=== PATIENT | female | born 1935 | race Two or more races ===

== ENCOUNTER → 2016-10-17 | Outpatient (CLI) | payer MEDICARE ==
--- NOTE | 2016-10-17 19:22 | REP ---
MRI lumbar spine without contrast: History: Lumbar radiculopathy. Bilateral hip and leg pain. No comparison imaging. Technique: Sagittal and axial T1 and T2-weighted scans are acquired in the usual fashion with and without fat saturation. Sequences include spin echo, turbo spin-echo, and STIR imaging sequences. MRI findings: Lumbar vertebral body heights are preserved and alignment is normal. Cortical and medullary bone signal intensity are normal. A normal caliber aorta is seen. Conus medullaris is normal in position and appearance at T12-L1. At T12-L1 there is diffuse disc bulging effacing the ventral subarachnoid space but not compressing the conus. No other abnormality at this level. At the L1-2, axial and sagittal images demonstrate diffuse disc bulging, this is most pronounced along the left lateral margin of the disc effacing the ventral subarachnoid space. No nerve root compression is seen. No central canal stenosis seen. At L2-3 there is moderate diffuse disc bulging. This combined with developmentally short pedicles and some ligamentum flavum and facet hypertrophy produces moderate central canal stenosis. The thecal sac measures 8 mm in the mid sagittal AP dimension at L2-3. No neural foraminal narrowing is seen. L3-4 there is a 3 mm grade 1 degenerative spondylolisthesis. No spondylolysis is seen. There is mild diffuse disc bulging. No neural foraminal encroachment is appreciated. There is mild central canal stenosis. Ligamentum flavum hypertrophy is seen. The thecal sac has an 8 mm AP mid sagittal dimension of L3-4. At L4-5, there is mild central canal stenosis due to posterior disc bulging and osteophytic ridging. There is facet and ligamentum flavum hypertrophy. Mild bilateral neural foraminal narrowing is seen at L4-5. L5-S1 there is a central disc protrusion with an annulus tear which subtly indents the ventral margin of the thecal sac. There is mild facet hypertrophy. No nerve root compression is seen. Impression: Degenerative spondylosis changes. Grade 1 degenerative L3-4 spondylolisthesis. Central canal stenosis at L3-4, L2-3, and to a lesser extent L4-5. Signed by Salas Shaw MD 10/17/2016 08:52 P
== END ==
LOC: M PLARAD 11:04
PROVIDERS: ATTEND Orthopaedic Surgery
DX: M54.16 Radiculopathy, lumbar region (principal); M48.06 Spinal stenosis, lumbar region; M43.16 Spondylolisthesis, lumbar region

== ENCOUNTER → 2019-05-03 | Outpatient (REF) | LOC: M LAB LCGH 11:06 | PROVIDERS: ATTEND Internal Medicine | DX: Z00.00 Encounter for general adult medical examination without abnormal findings (principal) ==

== ENCOUNTER 2019-06-04 13:03 | Inpatient (IN) | payer MEDICARE ==
[2019-06-04] VITALS (9 sets, daily range): BP systolic 127–163; BP diastolic 60–78; O2SAT 85–95
[~2019-06-04] VITALS: Ht 142.2 cm; Wt 101.6 kg
[2019-06-04] MEDS ORDERED: GABA-843 PO (15:50)
[2019-06-04] MEDS ORDERED: CITA40TA4 PO (15:50)
[2019-06-04] MEDS ORDERED: BISO5TAB9 PO (15:50)
[2019-06-04] MEDS ORDERED: ALBU0.63 INH (15:50)
[2019-06-04] MEDS ORDERED: SPIR1CAP INH (15:50)
[2019-06-04] MEDS ORDERED: RANI1TAB38 PO (15:50)
[2019-06-04] MEDS ORDERED: CART240C3 PO (15:50)
[2019-06-04] MEDS ORDERED: ALPR0.25 PO (15:50)
[2019-06-04] MEDS ORDERED: POTA20TA6 PO (15:50)
[2019-06-04] MEDS ORDERED: WARF-23 PO (15:50)
[2019-06-04] MEDS ORDERED: VITA100066 PO (15:50)
[2019-06-04] MEDS ORDERED: ZYLO300T6 PO (15:50)
[2019-06-04] MEDS ORDERED: ADV250INH INH (15:50)
[2019-06-04] MEDS ORDERED: WARF-20 PO (15:50)
[2019-06-04 16:31] LABS: HEMATOCRIT 33.7 % (36.0-47.0); HEMOGLOBIN 10.7 g/dl (12.0-15.5); MEAN CORPUSCULAR HEMOGLOBIN 28.9 pg (27.0-33.0); MEAN CORPUSCULAR HGB CONC 31.8 g/dl (32.0-36.5); MEAN CORPUSCULAR VOLUME 91.1 fl (80.0-96.0); PLATELET COUNT, AUTOMATED 226 10^3/uL (150-450)
[2019-06-04 16:47] LABS: ALBUMIN 2.6 GM/DL (3.2-5.2); BILIRUBIN,TOTAL 0.7 MG/DL (0.2-1.0); CALCIUM LEVEL 8.9 MG/DL (8.8-10.2); CREATININE FOR GFR 1.62 MG/DL (0.55-1.30); GLOMERULAR FILTRATION RATE 32.4 (>32); POTASSIUM SERUM 3.6 MEQ/L (3.5-5.1); TOTAL PROTEIN 6.8 GM/DL (6.4-8.2)
--- NOTE | 2019-06-04 17:08 | HPEPDOC ---
[facility] Medical History & Physical Date of Admission Jun 04, 2019 Date of Service: Jun 04, 2019 Primary Care Physician: Yoly Patricio DO [facility] Attending Physician: RIGO LACEY MD History and Physical CHIEF COMPLAINT: shortness of breath HISTORY OF PRESENT ILLNESS: Chrissy Moon is an 84-year-old female with history of chronic diastolic congestive heart failure, recurrent pneumonia, recent thoracentesis for drainage of right-sided pleural effusion (04/2019) who presents as a direct transfer from [facility] for loculated pleural effusion. She first presented to [facility] on 06/01/2019 with shortness of breath, fevers, chills. She was found to have mild leukocytosis at 11.2 and hypokalemia with potassium of 3.3. Chest x-ray was performed and found a right lower lobe infiltrate. A respiratory viral panel was negative and her BNP was found to be elevated at 894. She was previously hospitalized for pneumonia at [facility] four other times this year for the same symptoms. Each time she is treated with antibiotics and diuresis for suspected concurrent congestive heart failure exacerbation. In addition, the patient is currently on doxycycline for UTI. She has a history of recurrent UTIs for which she followed with urology several years ago but has not since seen a physician. Today, the patient reports her shortness of breath is much improved, she has some difficulty using her CPAP at night, but overall she feels better than she did 3 days ago. She was transferred to [facility] for possible thoracentesis and Pleurx catheter placement. PAST MEDICAL HISTORY: 1. History of recurrent pneumonias (5 in 2018) 2. Recent history of R-sided pleural effusion requiring thoracentesis in 04/2019 3. diastolic congestive heart failure 4. Recurrent UTIs 5. Paroxysmal atrial fibrillation (on Coumadin) 6. Chronic kidney disease stage 3, follows with Nephrology 7. COPD 8. CAD with history of stent placement in 1991 9. Essential hypertension 10. DM2 11. Anxiety disorder 12. Chronic back pain 13. SHARONDA on CPAP PAST SURGICAL HISTORY: 1. Cardiac surgery-Coronary stent 2001, 2. Angiogram 3. D&C 4. Total right knee replacement 11/27/14 5. Umbilical hernia 2009. SOCIAL HISTORY: Patient is a never smoker, denies EtOH, no other drugs, no pets in the home, no recent travel FAMILY HISTORY: Father: , diagnosed with Stroke Mother: 90 yrs, thyroid disease Siblings: , 2 brothers -DM2 sister(s) . 3 son(s) , 5 daughter(s) - healthy. ALLERGIES: Please see below. REVIEW OF SYSTEMS: CONSTITUTIONAL: Feels well. No fever or chills HEENT: denies vision changes, no sinus problems, denies any trouble swallowing CARDIOVASCULAR: no palpitations RESPIRATORY: Some shortness of breath at rest and with exertion GENITOURINARY: No dysuria MUSCULOSKELETAL: Denies any joint/muscle pain GASTROINTESTINAL: Denies abdominal pain, no nausea/vomiting/diarrhea SKIN: No new rashes or lesions NEUROLOGICAL: No loss of sensation PSYCHIATRIC: Reports normal mood, no delusions or hallucinations ENDOCRINE: No hot/cold intolerance HEMATOLOGIC/LYMPHATIC: No easy bruising, no lumps/bumps ALLERGIC/IMMUNOLOGIC: No sinus symptoms HOME MEDICATIONS: Please see below. PHYSICAL EXAMINATION: VITAL SIGNS: Please see below. GENERAL APPEARANCE: Laying in bed, morbidly obese, appears stated age, no acute distress, calm, cooperative HEENT: EOMI, PERRLA, neck is supple with no thyromegaly or lymphadenopathy RESPIRATORY: Decreased breath sounds on the right lower lobe middle lobe, normal breath sounds otherwise. Decrease E/A egophony in RLL CARDIOVASCULAR: Unable to assess JVD, irregularly regular, 2/6 murmur appreciated in left upper sternal border ABDOMEN: Soft, nontender to palpation in all four quadrants, no masses/organomegaly EXTREMITIES: Trace edema in lower extremities bilaterally NEUROLOGICAL: Cranial nerves II through XII are intact, No obvious focal deficits PSYCHIATRIC: normal mood/affect Skin: No rashes or ulcers. LN: No significant cervical or inguinal lymphadenopathy LABORATORY DATA: See below. IMAGING: CT CHEST (FROM [facility]) on 06/03/19: Impression: Cardiomegaly. COPD. Marked loculated right pleural effusion. Bibasilar atelectasis, including focus of nodularity right lung base most consistent with round atelectasis. A few mildly enlarged mediastinal lymph nodes are seen that are likely benign etiology. Follow-up CT chest recommended in 6 months to confirm stability. CXR (FROM [facility]) on 06/01/19: Impression: Underlying COPD. Cardiomegaly. Right pleural effusion. Right basilar atelectasis versus pneumonia. Increased markings suspicious for CHF. MICROBIOLOGY: Please see below. ASSESSMENT: This is an 84-year-old female with history of recurrent pneumonia, diastolic congestive heart failure, paroxysmal atrial fibrillation (on Coumadin) who presented first to [facility] on 06/01/2019 with shortness of breath and fever, found to have right lower lobe pneumonia and UTI. She now has loculated right lower lobe effusion and has been transferred to [facility] for possible drainage and catheter placement. Of note, she does have recurrent pneumonia with 5 hospitalizations in 2019. PLAN: 1. Loculated right lower lobe pleural effusion: Patient reports shortness of breath is improving since her admission to [facility] -Per patient, Previous thoracentesis fluid analysis demonstrated congestive heart failure as etiology. Will need to obtain these records from [facility]. -Thoracic surgery consulted for possible thoracentesis and/or catheter placement. -Patient has been on doxycycline for treatment of both UTI and pneumonia. Will check CBC for signs of infection with elevated white blood cell count -Will repeat imaging as necessary 2. Diastolic congestive heart failure: -No recent echocardiogram on file. Will need to obtain from primary care physician -Continue home torsemide, Bisoprolol 3. Paroxysmal atrial fibrillation on Coumadin: -Coumadin currently being held for procedure today. Will resume Coumadin in the morning -Rate control with diltiazem -Will check serial INRs -Continuous telemetry 4. Urinary tract infection: Urine culture at [facility] found to be positive for Escherichia coli with sensitivity to doxycycline. -The patient received one dose of doxycycline at outside hospital according to sensitivities of her urine. Will continue this course for total of 10 days. -Patient will need to see Urology in outpatient setting 5. Coronary artery disease: -Continue ASA, Atorvastatin 6. GERD: -Continue Ranitidine 7. Mood disorder: -Continue Citalopram 8. COPD: Patient follows with Dr. Tenorio -Continue Advair Diskus DISPO: Pending clinical improvement DVT Ppx: TEDs/SCDs I have personally evaluated and examined the patient. Discussed with resid ent/student regarding plan of care and agree with the above assessment and plan. Home Medications Scheduled Allopurinol (Zyloprim) 300 Mg Tablet, 300 MG PO DAILY Aspirin (Aspir 81) 81 Mg Tablet.dr 81 MG PO DAILY Atorvastatin Calcium (Atorvastatin Calcium) 20 Mg Tablet, 20 MG PO QHS 80 MG PRAVASTATIN GIVEN AT [facility] Bisoprolol Fumarate (Bisoprolol Fumarate) 5 Mg Tablet, 5 MG PO QHS Cholecalciferol (Vitamin D3) (Vitamin D3) 1,000 Unit Tablet, 2,000 UNIT PO DAILY Citalopram Hydrobromide (Citalopram HBr) 40 Mg Tablet, 40 MG PO DAILY Diltiazem HCl (Cartia Xt) 240 Mg Cap.er.24h, 240 MG PO DAILY Doxycycline Hyclate (Doxycycline Hyclate) 100 Mg Capsule, 100 MG PO BID Gabapentin (Gabapentin) 300 Mg Capsule, 600 MG PO BID Ranitidine Hcl (Ranitidine HCl) 150 Mg Tablet, 1 TAB PO DAILY GIVEN 40MG PANTOPRAZOLE AT [facility] Salmeterol/Fluticasone (Advair 250-50 Diskus) 1 Each Blst.w.dev, 1 PUFF INH BID Torsemide (Torsemide) 10 Mg Tablet, 20 MG PO DAILY Warfarin Sodium (Warfarin Sodium) 4 Mg Tablet, 4 MG PO 4XWK SUN, TUE, THUR, SAT @ 1800 Warfarin Sodium (Warfarin Sodium) 5 Mg Tablet, 5 MG PO 3XW MON, WED, FRI @ 1800 Scheduled PRN Albuterol Sulf (Albuterol Sulfate) 2.5 Mg/3 Ml Vial.neb, 1 VIAL INH Q4H PRN for SOB/WHEEZING Alprazolam (Alprazolam) 0.25 Mg Tablet, 0.25 MG PO BID PRN for ANXIETY Bisacodyl (Bisacodyl) 10 Mg Supp.rect, 10 MG MD DAILY PRN for CONSTIPATION Docusate Sodium (Colace) 100 Mg Capsule, 100 MG PO BID PRN for CONSTIPATION Allergies Coded Allergies: ANA Inhibitors (Verified Adverse Reaction, Intermediate, "AFFECTED MY KIDNEY FUNCTION", 06/04/19) NSAIDS (Non-Steroidal Anti-Inflamma (Verified Adverse Reaction, Intermedi ate, AFFECTS KIDNEY FUNCTION, 06/04/19) codeine (Verified Adverse Reaction, Intermediate, GI UPSET, 06/04/19) INFO FROM UROLOGY OFFICE NOTE 09/2016 levocetirizine (Verified Adverse Reaction, Intermediate, BLURRED VISION, 06/04/19) PER UROLOGY OFFICE NOTE 09/2016 topiramate (Verified Adverse Reaction, Intermediate, UNKNOWN, 06/04/19) PT CANT REMEMBER REACTION A-FIB/CHADSVASC A-FIB History Current/History of A-Fib/PAF?: Yes Current PO Anticoag Therapy: Yes KOBE AVILA MD Jun 04, 2019 15:43 RIGO LACEY MD Jun 05, 2019 09:16
[2019-06-04] MEDS ORDERED: ASPI81TA85 PO (17:13)
[2019-06-04] MEDS ORDERED: ATOR1TAB21 PO (17:13)
[2019-06-04] MEDS ORDERED: GLUCOSE 4 GM CHEW TABLET PO PRN (17:15)
[2019-06-04] MEDS ORDERED: GLUCAGON FOR INJ 1 MG VIAL (J1610) SC PRN (17:15)
[2019-06-04] MEDS ORDERED: BISACODYL 10 MG SUPP PR PRN (17:15)
[2019-06-04] MEDS ORDERED: LEVALBUTEROL 1.25 MG/0.5 ML CONCENTRATE NEB NEB PRN (17:15)
[2019-06-04] MEDS ORDERED: DEXTROSE 50% 50 ML SYRINGE IV PRN (17:15)
[2019-06-04] MEDS ORDERED: DOXY100C PO (17:23)
[2019-06-04] MEDS ORDERED: BISA10SU4 PR (17:23)
[2019-06-04] MEDS ORDERED: COLA100C5 PO (17:23)
[2019-06-04] MEDS ORDERED: TORS10TA3 PO (17:23)
[2019-06-04] MEDS ORDERED: ALBU83IN INH (17:25)
[2019-06-04] MEDS ORDERED: ALPRAZolam 0.25 MG TAB PO PRN (17:45)
[2019-06-04 18:13] LABS: ABG BASE EXCESS 6.6 (-2.0-2.0); ABG HCO3 31.2 MEQ/L (22.0-26.0); ABG O2 SATURATION 92.2 % (95.0-99.0); ABG PARTIAL PRESSURE CO2 45.2 mmHg (35.0-45.0); ABG PARTIAL PRESSURE O2 59.5 mmHg (75.0-100.0); ABG STANDARD HCO3 30.3 MEQ/L (22.0-26.0); ABG TOTAL CO2 32.6 MEQ/L (23.0-31.0); ABG pH (ARTERIAL) 7.457 UNITS (7.350-7.450)
--- NOTE | 2019-06-04 18:28 | CR ---
DATE OF CONSULTATION: 06/04/2019 Mrs. Moon is transferred here from [facility] for a pleural effusion, which has recurred since this past April where she underwent a thoracentesis with production of 400 mL. The family tells me that the physicians told her that it was transudative, but medical records state that it was exudative but not fluid chemistries are included. HISTORY OF PRESENT ILLNESS: The patient is an 84-year-old white female whose most recent story starts on . She started to develop a fever and shaking chills. Her fever was noted at 100 degrees Fahrenheit. She states that she usually runs a temperature of about 96 to 97. She did not perceive that she was short of breath; however, family noted that her breathing pattern had changed with shorter, quicker breaths. Because of her history of having had the pleural effusion, she then presented to the emergency room at [facility]. Notably, she does not complain of any chest pain or chest discomfort. There is no pain with deep inspiration. There is no difficulty swallowing and she only occasionally will choke when she swallows water but that is a rare circumstance. She has lost 30 pounds of weight in the past 6 months, but she has been placed on diuretics. Prior to being placed on diuretics, her legs were swollen and they have since diminished significantly in size. She has no cough and no sputum production. She certainly does not have any hemoptysis. PAST MEDICAL HISTORY: 1. Atrial fibrillation on Coumadin. 2. Diastolic heart failure. 3. Chronic renal insufficiency. 4. Pulmonary hypertension. 5. Chronic obstructive pulmonary disease (COPD). 6. Coronary artery disease, status post stenting many years ago. 7. Hypertension. 8. Anxiety. PAST SURGICAL HISTORY: 1. Knee replacement. 2. Hernia repair. ALLERGIES: [facility] has listed her as adverse reaction of blurred vision to ZYXOL and urticaria from TOPIRAMATE, renal insufficiency from NONSTEROIDAL ANTIINFLAMMATORY DRUGS. They also list [id number] (ANA) INHIBITOR, no description of the adverse reaction, CODEINE as gastrointestinal upset, and ANGIOTENSIN LAP HAND TOOL CELSO without listed reaction. HABITS: Does not smoke. Does not drink. Does not partake of illicit drugs. TRAVEL HISTORY: She has been to [facility] that she won in a [employer] many years ago. No travel to the [facility] or [facility]. PETS: No dogs, birds or cats at home. No exposure to tuberculosis. 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 There is no history of asbestos exposure. REVIEW OF SYSTEMS: CONSTITUTIONAL: See history of present illness. EYES: Wears glasses. Without diplopia. Without amaurosis fugax. Without a history of jaundice. NOSE: Without epistaxis. MOUTH: Has her own teeth. RESPIRATORY: See history of present illness. CARDIAC: See history of present illness. Has had coronary artery disease with stenting but no history of actual myocardial infarction. There is no orthopnea or paroxysmal nocturnal dyspnea, although she sleeps in a recliner secondary to her knee. No intermittent claudication. GASTROINTESTINAL: Without nausea, vomiting, diarrhea. Does have some constipation. Without melena or hematochezia, hematemesis or abdominal pain. GENITOURINARY: Without dysuria, hematuria or history of renal stones. NEUROLOGIC: Without paresthesias, paralysis, or prior seizures. PSYCHIATRIC: Has anxiety. Does not look to be on any active medications for it. Without pathological depressions or psychosis. FAMILY HISTORY: Mother is and had hypertension, hyperlipidemia, same as her father. PHYSICAL EXAMINATION: Well developed, obese, white female in no acute distress, lying comfortably. VITAL SIGNS: Temperature 96.5 with a pulse of 61, respiratory rate of 20, blood pressure 163/73, and she is 95% saturated on room air. EYES: Pupils are equal, round and reactive to light. Extraocular muscles intact. Sclerae nonicteric. NOSE: Without deformity. MOUTH: Shows her mucous membranes to be pink and moist. Lips and commissures without lesions. There is no thrush. She has her own teeth. HEAD: Normocephalic. NECK: Supple. There is no jugular venous distention (JVD). No subcutaneous emphysema. Trachea is midline. She has 2+ carotid upstrokes with a right sided carotid bruit. There is no thyromegaly or lymphadenopathy. LUNGS: Equal breath sounds on either side with crackles in the left lower hemithorax during late inspiration. Percussion note is full to the diaphragm, as far as I can tell from through her obesity. CARDIAC: Examination is without murmurs, clicks, gallops or rubs. I cannot her point of maximum impulse (PMI). S1, S2 are normal. ABDOMEN: Soft, nontender. Bowel sounds positive. There is no hepatomegaly. No costovertebral angle tenderness that I can elicit through her obesity. EXTREMITIES: Trace pretibial edema on both extremities, a little bit more on the left than the right. There is no calf tenderness. No differential swelling of the upper extremities. SKIN: Warm, dry and perfused without cyanosis or mottling, including that of the nailbeds and knees. NEUROLOGIC: II through XII intact. Gross motor and gross sensation intact. Gait is not tested. PSYCHIATRIC: Shows her to be awake and oriented times three with appropriate mood and affect and conversational. LABORATORY DATA: Her chemistries and white count are pending here. Complete blood count (CBC) from today at [facility] shows a white count of 11.3, essentially unchanged from her admission white count on . Hemoglobin and hematocrit are 10.2 and 31.8 with a platelet count of 232. Differential shows 17% lymphocytes, 79% neutrophils, 4% monocytes. No immature forms or toxic granulations reported. Her chemistries today at [facility] show essentially normal electrolytes with a creatinine of 1.4. No BUN was measured. Liver functions normal. Calcium is 9.2, glucose 125. Her PT/INR today were 21.2 and 2.2, respectively. She has grown Escherichia (E) coli from her urine cultures, but nothing from her sputum. Her chest CT done yesterday at [facility] shows a small pleural effusion in the right lower hemithorax. It looks as though it is free floating and does not look to be loculated. There is round atelectasis with consolidation in the right lower lobe, probably secondary to compression. Her adrenals have a normal configuration and there are no liver lesions. There is no pericardial effusion. There is minimal mediastinal lymphadenopathy, all less than 1 cm. She has extensive left sided coronary artery disease down the left anterior descending and the circumflex coronary arteries. I am guessing that her stent is in the circumflex coronary artery. Comparison to her May 02, 2019 CT, also done at [facility], shows the same small pleural effusion. It is in the same distribution as yesterday's pleural effusion. It looks as though she had a larger loculation in the right lower hemithorax, which is now gone. Chest x-ray done on 06/01/2019 shows the lateral pleural effusion. I suspect that she may have entrapped lung, but this was drained and has recurred. Her cardiac size is enlarged, although it is an AP chest. IMPRESSION: 1. Small pleural effusion, recurrent. 2. Coronary artery disease. 3. Diastolic heart failure. 4. Mild renal insufficiency. 5. Atrial fibrillation. 6. Urinary tract infection PLAN/DISCUSSION: At this point in time, I am not inclined to drain the pleural effusion with a chest tube. We will need to obtain diagnostic information and that can wait for an ultrasound guided thoracentesis and perhaps a pigtail catheter on Thursday. I will obtain an echocardiogram to see what her systolic function is like. She is reported to have pulmonary hypertension, but we will need to see the origins of that. She is not a smoker. She may have right heart failure, although she clinically does not have anasarca. We will follow her chest x-rays daily. I am not inclined to place her on antibiotics, as she has no evidence of pneumonia. Certainly, we should cover her Escherichia (E) coli, which was found to be resistant to Levaquin but sensitive to doxycycline. It should be noted that her electrocardiogram (EKG) upon admission to [facility] on 06/02/2019 showed a sinus rhythm without any acute ST changes. Her medications at home include: - albuterol 0.63 nebulizer three times a day as needed for wheezing - allopurinol 300 mg daily - alprazolam 0.25 mg as needed for anxiety - bisoprolol 5 mg daily - vitamin D3 2000 units daily - citalopram 40 mg daily - diltiazem 240 mg ER daily - gabapentin 600 mg twice a day - potassium chloride 20 mEq daily - ranitidine 150 mg daily - Advair Diskus 250/50 one puff twice a day - Spiriva 18 mcg daily - warfarin 4 mg daily MTDD
[2019-06-04] MEDS: KCL 20MEQ IN D5/NS 1000ML 1,000 ML IV SCH (18:46)
[2019-06-04] MEDS: HumaLOG INSULIN (NovoLOG) PER UNIT SC SCH ×2 (18:46→20:04)
[2019-06-04] MEDS: LEVALBUTEROL 1.25 MG/0.5 ML CONCENTRATE NEB NEB SCH (20:00)
[2019-06-04] MEDS: ADVAIR HFA 115/21MCG INHALER INH SCH (20:03)
[2019-06-04] MEDS: DOCUSATE SODIUM 100 MG CAP PO SCH (20:22)
[2019-06-04] MEDS: DOXYCYCLINE HYCLATE 100 MG TAB PO SCH (20:22)
[2019-06-04] MEDS: ATORVASTATIN 20 MG TAB PO SCH (20:22)
[2019-06-04] MEDS: bisoproloL fumarate 5 MG TAB PO SCH (20:22)
[2019-06-04] MEDS: GABAPENTIN 300 MG CAP PO SCH (20:22)
[2019-06-05] VITALS (23 sets, daily range): BP systolic 130–150; BP diastolic 62–77; O2SAT 86–99
[2019-06-05] MEDS: LEVALBUTEROL 1.25 MG/0.5 ML CONCENTRATE NEB NEB SCH ×4 (00:08→20:00)
[2019-06-05] MEDS: KCL 20MEQ IN D5/NS 1000ML 1,000 ML IV SCH (05:39)
[2019-06-05 05:42] LABS: BASO % 0.2 % (0.0-1.0); EOS # 0.2 10^3/uL (0.0-0.5); HEMATOCRIT 31.2 % (36.0-47.0); LYMPH % 22.6 % (24.0-44.0); MEAN CORPUSCULAR HEMOGLOBIN 29.3 pg (27.0-33.0); MEAN CORPUSCULAR HGB CONC 32.1 g/dl (32.0-36.5); MEAN CORPUSCULAR VOLUME 91.5 fl (80.0-96.0); MONO # 0.9 10^3/uL (0.0-0.8); MONO % 9.6 % (0.0-5.0); NEUTROPHILS # 5.8 10^3/uL (1.5-8.5); NEUTROPHILS % 65.2 % (36.0-66.0); PLATELET COUNT, AUTOMATED 221 10^3/uL (150-450); RED BLOOD COUNT 3.41 10^6/uL (4.00-5.40); WHITE BLOOD COUNT 8.9 10^3/uL (4.0-10.0)
[2019-06-05 06:12] LABS: CALCIUM LEVEL 8.8 MG/DL (8.8-10.2); CREATININE FOR GFR 1.49 MG/DL (0.55-1.30); GLOMERULAR FILTRATION RATE 35.7 (>32); MAGNESIUM LEVEL 1.9 MG/DL (1.8-2.4); POTASSIUM SERUM 3.8 MEQ/L (3.5-5.1)
[2019-06-05] MEDS: ADVAIR HFA 115/21MCG INHALER INH SCH ×2 (07:28→21:49)
[2019-06-05] MEDS: HumaLOG INSULIN (NovoLOG) PER UNIT SC SCH ×4 (07:30→20:07)
--- NOTE | 2019-06-05 08:00 | REP ---
Clinical: Pleural effusion. Technique: PA and lateral. Comparison: None. Findings: There is a moderate partially loculated right pleural effusion along with associated right lower lobe atelectasis. Subtle left basilar atelectasis and small left pleural effusion cannot be excluded. No pneumothorax. Mediastinum and cardiac silhouette normal. Skeletal structures appear intact. Impression: Moderate partially loculated right pleural effusion with associated atelectasis. Subtle changes at the left base. Electronically Signed by Raffaele Hull MD 06/05/2019 07:52 A
[2019-06-05] MEDS: MOM 30ML SUSPENSION UDC PO SCH (09:00)
[2019-06-05] MEDS: VITAMIN D 1,000 INTERNATIONAL UNITS TABLET PO SCH (09:36)
[2019-06-05] MEDS: ASPIRIN 81 MG ENTERIC TAB PO SCH (09:36)
[2019-06-05] MEDS: CitaloPRAM (CeleXA) 20 MG TAB PO SCH (09:36)
[2019-06-05] MEDS: DOCUSATE SODIUM 100 MG CAP PO SCH ×2 (09:36→20:26)
[2019-06-05] MEDS: DOXYCYCLINE HYCLATE 100 MG TAB PO SCH ×2 (09:37→20:26)
[2019-06-05] MEDS: PANTOPRAZOLE 40MG TAB (PROTONIX) PO SCH (09:37)
[2019-06-05] MEDS: allopurinoL 300 MG TAB PO SCH (09:37)
[2019-06-05] MEDS: GABAPENTIN 300 MG CAP PO SCH ×2 (09:37→20:26)
[2019-06-05] MEDS: TORSEMIDE 20 MG TAB PO SCH (09:37)
--- NOTE | 2019-06-05 09:49 | IPNPDOC ---
Date Seen The patient was seen on 06/05/19. Progress Note SUBJECTIVE: Patient appeared comfortable, denying any complaints. Afebrile overnight, saturating in low 90s on 1L O2 via NC. WBC 11->8.9. OBJECTIVE PHYSICAL EXAMINATION: VITAL SIGNS: Please see below. General: No acute distress, Alert Eyes: Normal sclera, EOMI HENT: Atraumatic Cardiovascular: Normal rate, normal rhythm. Pulmonary: No wheezing appreciated. GI: Soft, nontender, nondistended Skin: Warm and dry Neuro: CN grossly intact. No focal deficits. Strengths equal b/l. Psych: oriented x 3 LABORATORY DATA, IMAGING STUDIES, MICROBIOLOGY: Please see below. DVT prophylaxis ordered?: TEDs ASSESSMENT AND PLAN: 1. Loculated R. sided LL pleural effusion - s/p previous recent thoracentesis. - Thoracic surgery following. Does not recommend urgent chest tube placement at this time. - Will reassess tomorrow and likely can benefit from US guided thoracentesis and possible pigtail catheter. 2. HFpEF - c/w home meds torsemide and bisoprolol. 3. pAfib - Hold warfarin at this time for possible procedure tomorrow. - c/w diltiazem. rate controlled. 4. UTI - f/u urine culture. recent sensitivity shows resistant to levaquin but sensitive to doxycycline. - c/w doxy for treatment. 5. CAD - c/w ASA and statin. - No chest pain. 6. Mood disorder - c/w citalopram 7. COPD - not in exacerbation. - Follows with Dr. Tenorio. - c/w advair VS, I&O, 24H, Fishbone Vital Signs/I&O Vital Signs Date Time Temp Pulse Resp B/P (MAP) Pulse Ox O2 Delivery O2 Flow Rate FiO2 06/05/19 08:00 98.1 74 18 140/64 (89) 90 Nasal Cannula 1.0 I&O- Last 24 Hours up to 6 AM 06/05/19 06:00 Intake Total 825 ml Output Total 900 ml Balance -75 ml Laboratory Data 24H LABS Laboratory Tests 2 06/04/19 16:03: Nucleated Red Blood Cells % (auto) 0.0, Anion Gap 8, Glomerular Filtration Rate 32.4, Calcium Level 8.9, Total Bilirubin 0.7, Aspartate Amino Transf (AST/SGOT) 33, Alanine Aminotransferase (ALT/SGPT) 34, Alkaline Phosphatase 97, Total Protein 6.8, Albumin 2.6L, Albumin/Globulin Ratio 0.62L 06/04/19 17:40: Bedside Glucose (Misc Panel) 111H 06/04/19 18:02: Blood Gas Bicarbonate Standard 30.3H, Arterial Blood pH 7.457H, Arterial Blood Partial Pressure CO2 45.2H, Arterial Blood Partial Pressure O2 59.5L, Arterial Blood Total CO2 32.6H, Arterial Blood HCO3 31.2H, Arterial Blood Base Excess 6.6H, Arterial Blood Oxygen Saturation 92.2L 06/04/19 18:31: Urine Color STRAW, Urine Appearance CLEAR, Urine pH 6.0, Urine Specific Dana 1.009, Urine Protein NEGATIVE, Urine Glucose (UA) NEGATIVE, Urine Ketones NEGATIVE, Urine Blood NEGATIVE, Urine Nitrite NEGATIVE, Urine Bilirubin NEGATIVE, Urine Urobilinogen 0.2, Urine Leukocyte Esterase 1+H, Urine WBC (Auto) 15H, Urine RBC (Auto) 2, Urine Hyaline Casts (Auto) 1, Urine Bacteria (Auto) 1+H, Urine Squamous Epithelial Cells 1, Urine Mucus (Auto) SMALL, Urine Sperm (Auto) 06/04/19 19:55: Bedside Glucose (Misc Panel) 120H 06/05/19 05:28: Immature Granulocyte % (Auto) 0.4, Neutrophils (%) (Auto) 65.2, Lymphocytes (%) (Auto) 22.6L, Monocytes (%) (Auto) 9.6H, Eosinophils (%) (Auto) 2.0, Basophils (%) (Auto) 0.2, Neutrophils # (Auto) 5.8, Lymphocytes # (Auto) 2.0, Monocytes # (Auto) 0.9H, Eosinophils # (Auto) 0.2, Basophils # (Auto) 0.0, Nucleated Red Blood Cells % (auto) 0.0, Anion Gap 7L, Glomerular Filtration Rate 35.7, Calcium Level 8.8, Magnesium Level 1.9 06/05/19 07:25: Bedside Glucose (Misc Panel) 111H CBC/BMP Laboratory Tests 06/04/19 16:03 06/05/19 05:28 Microbiology Microbiology 06/04/19 Urine Culture, Received Pending RIGO LACEY MD Jun 05, 2019 09:49
--- NOTE | 2019-06-05 12:40 | IPN ---
DATE: 06/05/2019 Ms. Moon has had an uneventful night. She has been afebrile all throughout the night and does not report chills. She has no cough, no sputum production, and no chest pain. Her vital signs show a maximum temperature (T max) of 98.4 with a heart rate that ranges between 74 and 69 and is sinus rhythm, respiratory rate of 16-18 without the use of accessory muscles, who is 92 to 91% saturated on one liter nasal cannula and whose blood pressure is ranging between 140/64 to 135/69. Her intake and output over the past 24 hours has been recorded as 225 in and 700 out for a negativity of 475 mL. The past 11 hours she has had 1200 in and 200 out for a positivity of 1000 mL. She has put out 200 mL in urine. Weight today is 104.6 kg compared to 103.6 kg yesterday. On physical examination, she has bilateral inspiratory rales at both bases. These do not clear with coughing. Percussion note is full to the diaphragm as far as I can tell with her obesity. Cardiac exam is without murmurs, clicks, gallops or rubs. I cannot feel her point of maximum impulse (PMI). S1, S2 are normal. Abdomen is soft and nontender. Bowel sounds are positive. There is no hepatomegaly. No costovertebral angle tenderness. Extremities show trace pretibial edema. No calf tenderness. No differential swelling of the upper extremities. Skin is warm, dry and perfused without cyanosis or mottling, including that of the nail beds and the knees. Neck is supple. There is no jugular venous distention, no subcutaneous emphysema. Trachea is midline. Mouth shows her mucous membranes to be pink and moist. Lips and commissures without lesions. There is no thrush. Eyes show her pupils to be equal and reactive. Extraocular motions intact. Sclerae anicteric. Neurologic shows II-XII intact along with gross motor and gross sensation intact. Gait is not tested. Psychiatric shows her to be awake and alert, oriented times three with appropriate mood and affect and conversational. Her white count today is down to 8.9 with a hemoglobin and hematocrit of 10.0 and 31.2. Platelet count is 221 and stable and differential shows 65% neutrophils, 22% lymphocytes, 9% monocytes. There are no immature forms, no toxic granulations. Her electrolytes are essentially normal with a BUN and creatinine, however, of 43 and 1.49, slightly better than 46 and 1.62 yesterday. Glucose is 105 with a calcium of 8.8 and a magnesium of 1.9. Blood gases yesterday showed a pH of 7.45, a pCO2 of 45, and a pO2 of 59 on room air with a base excess of 6.6. Her chest x-ray today shows the right-sided lateral pleural effusion. There looks to be some compression of the underlying right lower lobe. It certainly does not represent consolidation or pneumonia. Lateral chest x-ray does not show any posterior infiltrates. Echocardiogram report is pending. It was done yesterday. I will look at the images myself after this dictation. IMPRESSION: 1. Right-sided pleural effusion, recurrent. 2. Coronary artery disease. 3. Diastolic heart failure. 4. Mild renal insufficiency. 5. Atrial fibrillation, on Coumadin. 6. Urinary tract infection PLAN AND DISCUSSION: I will plan to put a pigtail catheter in her tomorrow with a request to radiology. Will put it to a Pleur-evac and send it for requisite specimens. I, again, think this is secondary to a combination of heart failure and renal failure rather than an underlying infection. She is on doxycycline for a proven urinary tract infection, Escherichia (E) coli. I see that her pro-time was not checked today, and I will place orders to do so. ROCHELLE
--- NOTE | 2019-06-05 15:34 | ECHO ---
DATE OF PROCEDURE: 06/04/2019 Date of : 1935 Age: 84 Gender: Female Height: 56 inches Weight: 229 pounds Body surface area: 1.88 meters squared Inpatient: Progressive care unit (PCU), room 3227 REFERRING PHYSICIAN: Dr. Jer Caballero INDICATION: Heart failure (unspecified). MEASUREMENTS: 2D Measurements: RV: 4.2 cm LV: 4.5 cm Septum: 1.1 cm Posterior wall: 1.1 cm Aortic root: 3.3 cm LA: 3.8 cm LVEF: 70% Doppler Measurements: AV: 1.79 meters per second LVOT: 1.17 meters per second LVOT 1.7 cm MV-E: 110, A: 49, E/A ratio: 2.2 Early mitral deceleration time: 218 milliseconds E prime medial: 9.8, A prime medial: 9.7, E prime lateral: 9.8. Average E/E prime ratio: 11.2/PCWP: 15.8 mmHg PV: 0.8 meters per second Pulmonary artery acceleration time: 99 milliseconds RVSP: 59-64 mmHg IVC: 2.3 cm COMMENTS: Normal sinus rhythm with premature atrial contractions (PACs). First-degree atrioventricular (AV) block. Intraventricular conduction disturbance. M-mode and two-dimensional echocardiography was performed with pulsed, continuous wave, color flow and tissue Doppler studies. Normal left ventricular cavity size with left ventricular (LV) wall thickness upper limits of normal. Subtle proximal septal wall motion abnormality believed to be related to right ventricular pressure overload but other wall motion was symmetrical and hyperkinetic. Preserved global resting left ventricular systolic function. Left atrial size upper limits of normal with grade 2 LV diastolic dysfunction and current estimated mean left atrial pressure only slightly elevated. Mildly dilated right ventricle and at least mild to moderately dilated right atrium with slight right ventricular free wall hypokinesis and Doppler evidence of moderately severe- severe pulmonary hypertension. At least mildly dilated inferior vena cava with absent respiratory collapse in keeping with elevated central venous pressure/right heart failure. Mild aortic valvular sclerosis without functional abnormality. Normal aortic diameters. Mild mitral annular calcification and slight thickening of the mitral leaflets but adequate leaflet excursion and no posterior systolic buckling with very mild mitral insufficiency. Normal appearing tricuspid valve with moderate insufficiency. No apparent intracardiac mass or pericardial effusion. MTDD
[2019-06-05] MEDS: bisoproloL fumarate 5 MG TAB PO SCH (20:26)
[2019-06-05] MEDS: ATORVASTATIN 20 MG TAB PO SCH (20:26)
[2019-06-06] VITALS (22 sets, daily range): BP systolic 116–151; BP diastolic 56–67; O2SAT 86–97
[2019-06-06] MEDS: LEVALBUTEROL 1.25 MG/0.5 ML CONCENTRATE NEB NEB SCH ×4 (02:28→20:00)
[2019-06-06 06:00] LABS: BASO % 0.3 % (0.0-1.0); EOS # 0.3 10^3/uL (0.0-0.5); EOS % 4.5 % (0.0-3.0); HEMOGLOBIN 10.1 g/dl (12.0-15.5); LYMPH % 28.9 % (24.0-44.0); MEAN CORPUSCULAR HGB CONC 31.6 g/dl (32.0-36.5); MONO # 0.8 10^3/uL (0.0-0.8); MONO % 11.5 % (0.0-5.0); NEUTROPHILS # 3.8 10^3/uL (1.5-8.5); NEUTROPHILS % 54.5 % (36.0-66.0); PLATELET COUNT, AUTOMATED 235 10^3/uL (150-450); RED BLOOD COUNT 3.48 10^6/uL (4.00-5.40)
[2019-06-06 06:09] LABS: INR 1.69; PROTHROMBIN TIME 19.6 SECONDS (11.8-14.0)
[2019-06-06 06:22] LABS: CALCIUM LEVEL 9.1 MG/DL (8.8-10.2); CREATININE FOR GFR 1.47 MG/DL (0.55-1.30); GLOMERULAR FILTRATION RATE 36.2 (>32); MAGNESIUM LEVEL 1.9 MG/DL (1.8-2.4); POTASSIUM SERUM 3.7 MEQ/L (3.5-5.1)
[2019-06-06] MEDS: ADVAIR HFA 115/21MCG INHALER INH SCH ×2 (07:47→22:03)
[2019-06-06] MEDS: VITAMIN D 1,000 INTERNATIONAL UNITS TABLET PO SCH (08:52)
[2019-06-06] MEDS: CitaloPRAM (CeleXA) 20 MG TAB PO SCH (08:53)
[2019-06-06] MEDS: TORSEMIDE 20 MG TAB PO SCH (08:53)
[2019-06-06] MEDS: GABAPENTIN 300 MG CAP PO SCH ×2 (08:53→21:34)
[2019-06-06] MEDS: DOXYCYCLINE HYCLATE 100 MG TAB PO SCH ×2 (08:54→21:37)
[2019-06-06] MEDS: PANTOPRAZOLE 40MG TAB (PROTONIX) PO SCH (08:55)
[2019-06-06] MEDS: DOCUSATE SODIUM 100 MG CAP PO SCH ×2 (08:55→21:34)
[2019-06-06] MEDS: allopurinoL 300 MG TAB PO SCH (08:55)
[2019-06-06] MEDS: HumaLOG INSULIN (NovoLOG) PER UNIT SC SCH (08:55)
[2019-06-06] MEDS: MOM 30ML SUSPENSION UDC PO SCH (08:55)
[2019-06-06] MEDS: ASPIRIN 81 MG ENTERIC TAB PO SCH (08:56)
--- NOTE | 2019-06-06 10:24 | IPNPDOC ---
Date Seen The patient was seen on 06/06/19. Progress Note SUBJECTIVE: Patient reports she is feeling well today, and she has never had any issues with her breathing since she was admitted here. Overall, she feels better than she did when she was admitted to [facility] on 06/01. She had no issues overnight. including no fevers, chills, n/v/d. She used 1LNC overnight rather than her home CPAP. OBJECTIVE: PHYSICAL EXAMINATION: VITAL SIGNS: Please see below. GENERAL APPEARANCE: Laying in bed, morbidly obese, appears stated age, no acute distress, calm, cooperative HEENT: EOMI, PERRLA, neck is supple with no thyromegaly or lymphadenopathy RESPIRATORY: Decreased breath sounds on the right lower lobe middle lobe, normal breath sounds otherwise. Decrease E/A egophony in RLL CARDIOVASCULAR: Unable to assess JVD, irregularly regular, 2/6 murmur apprecia luan in left upper sternal border ABDOMEN: Soft, nontender to palpation in all four quadrants, no mas ses/organomegaly EXTREMITIES: Trace edema in lower extremities bilaterally NEUROLOGICAL: Cranial nerves II through XII are intact, No obvious focal deficits PSYCHIATRIC: normal mood/affect Skin: No rashes or ulcers. LN: No significant cervical or inguinal lymphadenopathy LABORATORY DATA: See below. IMAGING: CT CHEST (FROM [facility]) on 06/03/19: Impression: Cardiomegaly. COPD. Marked loculated right pleural effusion. Bibasilar atelectasis, including focus of nodularity right lung base most consistent with round atelectasis. A few mildly enlarged mediastinal lymph nodes are seen that are likely benign etiology. Follow-up CT chest recommended in 6 months to confirm stability. CXR (FROM [facility]) on 06/01/19: Impression: Underlying COPD. Cardiomegaly. Right pleural effusion. Right basilar atelectasis versus pneumonia. Increased markings suspicious for CHF. CXR (06/05/19): Impression: Moderate partially loculated right pleural effusion with associated atelectasis. Subtle changes at the left base. MICROBIOLOGY: Please see below. ASSESSMENT: This is an 84-year-old female with history of recurrent pneumonia, diastolic congestive heart failure, paroxysmal atrial fibrillation (on Coumadin) who presented first to [facility] on 06/01/2019 with shortness of breath and fever, found to have right lower lobe pneumonia and UTI. She now has loculated right lower lobe effusion and has been transferred to [facility] for possible drainage and catheter placement. Of note, she does have recurrent pneumonia with 5 hospitalizations in 2019. PLAN: 1. Loculated right lower lobe pleural effusion: Patient reports shortness of breath is improving since her admission to [facility] -Per patient, Previous thoracentesis fluid analysis demonstrated congestive heart failure as etiology. Will need to obtain these records from [facility]. -Thoracic surgery to place pigtail catheter today. Coumadin has been held for procedure. INR 1.6 -CXR today demonstrates stable pleural effusion unchanged from prior -No indication for more abx other than Doxycycline for UTI at this time 2. Diastolic congestive heart failure: -Echocardiogram demonstrates grade 2 LV diastolic dysfunction, moderate to severe pulmonary hypertension with LVEF 70% -Continue home torsemide, Bisoprolol 3. Paroxysmal atrial fibrillation on Coumadin: -Coumadin currently being held for procedure today. Will resume Coumadin in the morning -Rate control with diltiazem -Will check serial INRs -Continuous telemetry 4. Urinary tract infection: Urine culture positive for E. coli -Continue Doxycyline (day 08/15) -Patient will need to see Urology in outpatient setting for chronic recurring UTIs 5. Coronary artery disease: -Continue ASA, Atorvastatin 6. GERD: -Continue Ranitidine 7. Mood disorder: -Continue Citalopram 8. COPD: Patient follows with Dr. Tenorio -Continue Advair Diskus DISPO: Pending clinical improvement DVT Ppx: TEDs/SCDs VS, I&O, 24H, Fishbone Vital Signs/I&O Vital Signs Date Time Temp Pulse Resp B/P (MAP) Pulse Ox O2 Delivery O2 Flow Rate FiO2 06/06/19 08:54 77 142/66 06/06/19 08:00 97.6 17 96 Nasal Cannula 1.0 I&O- Last 24 Hours up to 6 AM 06/06/19 06:00 Intake Total 1285 ml Output Total 2000 ml Balance -715 ml Laboratory Data 24H LABS Laboratory Tests 2 06/05/19 11:46: Bedside Glucose (Misc Panel) 105 06/05/19 16:40: Bedside Glucose (Misc Panel) 122H 06/05/19 19:49: Bedside Glucose (Misc Panel) 119H 06/06/19 05:36: Immature Granulocyte % (Auto) 0.3, Neutrophils (%) (Auto) 54.5, Lymphocytes (%) (Auto) 28.9, Monocytes (%) (Auto) 11.5H, Eosinophils (%) (Auto) 4.5H, Basophils (%) (Auto) 0.3, Neutrophils # (Auto) 3.8, Lymphocytes # (Auto) 2.0, Monocytes # (Auto) 0.8, Eosinophils # (Auto) 0.3, Basophils # (Auto) 0.0, Nucleated Red Blood Cells % (auto) 0.0, Prothrombin Time 19.6H, Prothromb Time International Ratio 1.69, Anion Gap 8, Glomerular Filtration Rate 36.2, Calcium Level 9.1, Magnesium Level 1.9, Lactate Dehydrogenase 161 CBC/BMP Laboratory Tests 06/06/19 05:36 Microbiology Microbiology 06/04/19 Urine Culture - Final, Complete Escherichia Coli GME ATTESTATION GME ATTESTATION My faculty preceptor for this patient encounter was physically present during the encounter and was fully available. All aspects of the patient interview, examination, medical decision making process, and medical care plan development were reviewed and approved by the faculty preceptor. The faculty preceptor is aware and concurs with the plan as stated in the body of this note and will attest to such by his/her cosignature. ATTENDING NOTE I have personally evaluated and examined the patient. Discussed with resident/student regarding plan of care and agree with the above assessment and plan. KOBE AVILA MD Jun 06, 2019 10:24 RIGO LACEY MD Jun 06, 2019 10:53
--- NOTE | 2019-06-06 12:41 | REP ---
Clinical: Pleural effusion. Technique: PA and lateral. Comparison: 06/05/2019. Findings: There appears to be a small to moderate partially loculated right pleural effusion along the lateral aspect of the right lower lung zone and diaphragmatic surface unchanged from recent prior examination. Small left pleural reaction along with associated bibasilar atelectasis suggested as well. No pneumothorax. Mediastinum and cardiac silhouette are stable and within normal limits. Skeletal structures are intact. Impression: No change from recent prior examination. Electronically Signed by Raffaele Hull MD 06/06/2019 08:49 A
[2019-06-06] MEDS ORDERED: LIDOCAINE 1% MDV 20ML VIAL As Ordered ONE (12:49)
--- NOTE | 2019-06-06 13:03 | IPN ---
DATE: 06/06/2019 Ms. Moon tells me she is a little bit more short of breath today. When asked how she is doing she still states that she is huffing and puffing. She has no pain, no cough, no sputum production. There is no fever or chills. Her vital signs show a T-max of 97.8 with a heart rate that ranges between 69 and 75 and is sinus rhythm, respiratory rate of 16-17 without the use of accessory muscles, who is 96-94% saturated on 1 liter nasal cannula. Blood pressure is ranging between 146/66 to 142/63. Her intake and output the past 24 hours has been recorded as 1885 in and 2200 out for a negativity of 315 mL. Her weight today is 103.7 kilos compared to 104.6 kilos yesterday. On physical examination, she has bilateral basilar rales on either side with the right greater than the left. The percussion note is full to the diaphragm as far as I can tell through her obesity. Cardiac exam shows a regular rate and rhythm without murmurs, clicks, gallops or rubs. I cannot feel her point of maximal impulse (PMI). S1 and S2 are normal. Abdomen is soft and nontender. Bowel sounds are positive. There is no hepatomegaly that I can feel through the morbid obesity. There is no costovertebral angle (CVA) tenderness. Extremities show no pretibial edema. No calf tenderness. No differential swelling of the upper extremities. Skin is warm, dry and perfused without cyanosis or mottling including that of the nail beds and the knees. Neck is supple. There is no jugular venous distention. No subcutaneous emphysema. Trachea is midline. Mouth shows her mucous membranes to be pink and moist. Lips and commissures are without lesions. There is no thrush. Eyes show her pupils to be equal and reactive. Extraocular motors are intact. Sclera nonicteric. Neuro shows II through XII intact, along with gross motor and gross sensation intact. Gait is not tested. Psychiatric shows her to be awake and alert, oriented times three with appropriate mood, affect and conversational. Her white count continues to fall. It is now down to 7.0. Hemoglobin and hematocrit is 10.1 and 32 respectively, unchanged from yesterday with a platelet count of 235. Differential shows 54% neutrophils, 28% lymphocytes, 11% monocytes. There are no immature forms. No toxic granulations. Her chemistries show essentially normal electrolytes with a BUN and creatinine of 40 and 1.47, and glucose of 107 with a calcium of 9.1 and magnesium of 1.9. Her PT/INR are 19.6 and 1.69 respectively. Her chest x-ray shows that same, what is probably going to be a loculated pleural effusion laterally and posteriorly. I see no infiltrates, although there looks to be some compression of the right lower lobe underneath the pleural effusion. Her echocardiogram done yesterday shows pulmonary hypertension with an estimated pulmonary systolic pressure of 59-64 mmHg. By inspection, she has a left ventricular ejection fraction of 70%. There is moderate tricuspid insufficiency. There is a dilated inferior vena cava consistent with her increased artery pressures. Her right ventricle is mildly dilated. IMPRESSION: 1. Right sided pleural effusion, recurrent. 2. Coronary artery disease (CAD). 3. Diastolic heart failure. 4. Mild renal insufficiency. 5. Atrial fibrillation on Coumadin, now in sinus rhythm. 6. Tricuspid insufficiency. 7. Pulmonary hypertension probably secondary to hypoventilation and her morbid obesity. 8. E. coli urinary tract infection PLAN AND DISCUSSION: Today she is going to go down for a pigtail catheter. We will remove what fluid is there and send it for the requisite chemistries, hematologies, cytologies and bacteriologies. I am expecting it to be transudative and monocytic secondary to its chronicity. The post procedure chest x-ray will be carvajal with regard to whether her lung is going to expand to the chest wall. If it does not, I will try tPA in the morning chest x-ray to give it some time to fully expand. It may be entrapped and that may be our baseline. MTDD
[2019-06-06 14:24] LABS: APPEARANCE, BODY FLUID CLOUDY (CLEAR); PLEURAL FL COLOR ORANGE (COLORLESS); SOURCE, BODY FLUID PLEURAL
[2019-06-06 14:31] LABS: PH BODY FLUID 7.652 UNITS (NOT ESTABLISHED); SOURCE, BODY FLUID pH PLEURAL
[2019-06-06 14:32] LABS: AMYLASE, BODY FLUID 20 U/L (NOT ESTABLISHED); CHOLESTEROL, BODY FLUID < 50 MG/DL (NOT ESTABLISHED); LDH, BODY FLUID 99 U/L (NOT ESTABLISHED); SOURCE, BODY FLUID ALBUMIN PLEURAL; SOURCE, BODY FLUID AMYLASE PLEURAL; SOURCE, BODY FLUID CHOL PLEURAL; SOURCE, BODY FLUID GLUCOSE PLEURAL; SOURCE, BODY FLUID LDH PLEURAL; SOURCE, BODY FLUID TOT PROTEIN PLEURAL; SOURCE, BODY FLUID TRIG PLEURAL; TOTAL PROTEIN, BODY FLUID 2.2 G/DL (NOT ESTABLISHED); TRIGLYCERIDE, BODY FLUID 24 MG/DL (NOT ESTABLISHED)
[2019-06-06 14:45] LABS: HEMOGLOBIN A1c 6.8 %
[2019-06-06] MEDS: ACETAMINOPHEN TAB 650MG DOSE (2X325MG) PO PRN ×2 (15:18→21:35)
[2019-06-06] MEDS ORDERED: ALTEPLASE 2 MG/2 ML VIAL (J2997 PER 1MG) XX ONE (16:00)
--- NOTE | 2019-06-06 16:28 | REP ---
Chest x-ray: Two views. 04:16 p.m. film. History: Status post right pigtail catheter placement and thoracentesis. Comparison chest x-ray June 06, 2019, 08:43 a.m. film. Findings: A right posterolateral pigtail catheter is seen in the pleural space in good position. There is a decrease in the size of the pleural thickening along the lateral chest wall. No complication is seen. Electronically Signed by Salas Shaw MD 06/06/2019 04:20 P
--- NOTE | 2019-06-06 17:20 | RO ---
DATE OF PROCEDURE: 06/06/2019 PREPROCEDURE DIAGNOSIS: Loculated pleural effusion. POSTPROCEDURE DIAGNOSIS: Loculate pleural effusion. SURGEON: Dr. Jer Caballero. PROCEDURE: TPA pleurolysis. Pigtail catheter already had been placed into the pleural collection which only drained about 30 mL of thick fluid. Therefore the catheter was disconnected from the Pleur-evac and the stopcock opened and 50 mL of saline containing 6 mg of TPA were instilled into the cavity. The stopcock was again closed and the patient was shaken from side to side to distribute the TPA. As the collection is at the bottom of the chest I will have her sit up. The stopcock will be opened in four hours and allowed to drain to the Pleur-evac under -20 cm of suction. The patient tolerated the procedure well.
--- NOTE | 2019-06-06 18:29 | REP ---
Ultrasound-guided thoracentesis The procedure was performed by KISHA Davis, under the direct supervision of Dr. Shaw The risks and benefits of the procedure were explained to the patient and informed consent was obtained both verbally and written. Directly prior to the start of the procedure, a formal timeout was completed in the exam room. Pleural fluid on the right lung zone was localized using ultrasound guidance. The skin was prepped and draped in a sterile fashion. 10 ml of 1% lidocaine 10 mg/ml was used as a local anesthetic. Using ultrasound guidance, an 8-Ch[place] multi side-hole pigtail catheter was inserted and advanced into the fluid. 38 ml of red tinged colored fluid was withdrawn and sent to the lab for analysis. The catheter was then attached to a Pleur-Evac device. The patient tolerated the procedure well and there were no immediate complications. Reviewed by KISHA Tsang 06/06/2019 04:35 P Electronically Signed by Salas Shaw MD 06/06/2019 06:19 P
[2019-06-06] MEDS ORDERED: DEXTROSE 50% 50 ML SYRINGE IV PRN (18:30)
[2019-06-06] MEDS ORDERED: GLUCAGON FOR INJ 1 MG VIAL (J1610) SC PRN (18:30)
[2019-06-06] MEDS ORDERED: GLUCOSE 4 GM CHEW TABLET PO PRN (18:30)
[2019-06-06] MEDS ORDERED: HumaLOG INSULIN (NovoLOG) PER UNIT SC SCH (21:00)
[2019-06-06] MEDS: ATORVASTATIN 20 MG TAB PO SCH (21:37)
[2019-06-06] MEDS: bisoproloL fumarate 5 MG TAB PO SCH (21:37)
[2019-06-07] VITALS (11 sets, daily range): BP systolic 118–148; BP diastolic 58–80; O2SAT 91–94
[2019-06-07] MEDS: LEVALBUTEROL 1.25 MG/0.5 ML CONCENTRATE NEB NEB SCH ×3 (02:00→14:14)
[2019-06-07 06:10] LABS: BASO % 0.3 % (0.0-1.0); EOS # 0.4 10^3/uL (0.0-0.5); EOS % 5.1 % (0.0-3.0); HEMATOCRIT 32.8 % (36.0-47.0); HEMOGLOBIN 10.4 g/dl (12.0-15.5); LYMPH # 1.8 10^3/uL (1.5-5.0); LYMPH % 23.1 % (24.0-44.0); MEAN CORPUSCULAR HEMOGLOBIN 28.8 pg (27.0-33.0); MEAN CORPUSCULAR HGB CONC 31.7 g/dl (32.0-36.5); MEAN CORPUSCULAR VOLUME 90.9 fl (80.0-96.0); MONO # 0.7 10^3/uL (0.0-0.8); MONO % 9.4 % (0.0-5.0); NEUTROPHILS # 4.9 10^3/uL (1.5-8.5); NEUTROPHILS % 61.7 % (36.0-66.0); PLATELET COUNT, AUTOMATED 244 10^3/uL (150-450); RED BLOOD COUNT 3.61 10^6/uL (4.00-5.40); WHITE BLOOD COUNT 7.9 10^3/uL (4.0-10.0)
[2019-06-07 06:19] LABS: INR 1.46; PROTHROMBIN TIME 17.5 SECONDS (11.8-14.0)
[2019-06-07 06:31] LABS: CALCIUM LEVEL 9.3 MG/DL (8.8-10.2); CREATININE FOR GFR 1.48 MG/DL (0.55-1.30); GLOMERULAR FILTRATION RATE 35.9 (>32); MAGNESIUM LEVEL 1.8 MG/DL (1.8-2.4); POTASSIUM SERUM 3.6 MEQ/L (3.5-5.1)
[2019-06-07] MEDS: ADVAIR HFA 115/21MCG INHALER INH SCH (08:13)
--- NOTE | 2019-06-07 08:15 | REP ---
Clinical: Pleural effusion. Technique: PA and lateral. Comparison: 06/06/2019. Findings: Stable pigtail catheter at the lateral right lung base with minimally decreased pleural fluid as compared to recent prior examination. Continued bibasilar opacities suggesting elements of atelectasis and pleural fluid noted. No obvious new acute process. Mediastinum and cardiac silhouette stable. Impression: Minimally decreased right pleural fluid. Continued bibasilar opacities and pleuroparenchymal changes. Electronically Signed by Raffaele Hull MD 06/07/2019 08:07 A
[2019-06-07] MEDS: DOCUSATE SODIUM 100 MG CAP PO SCH (08:52)
[2019-06-07] MEDS: HumaLOG INSULIN (NovoLOG) PER UNIT SC SCH ×2 (08:52→12:00)
[2019-06-07] MEDS: PANTOPRAZOLE 40MG TAB (PROTONIX) PO SCH (08:53)
[2019-06-07] MEDS: GABAPENTIN 300 MG CAP PO SCH (08:54)
[2019-06-07] MEDS: TORSEMIDE 20 MG TAB PO SCH (08:54)
[2019-06-07] MEDS: CitaloPRAM (CeleXA) 20 MG TAB PO SCH (08:54)
[2019-06-07] MEDS: VITAMIN D 1,000 INTERNATIONAL UNITS TABLET PO SCH (08:55)
[2019-06-07] MEDS: ASPIRIN 81 MG ENTERIC TAB PO SCH (08:55)
[2019-06-07] MEDS: allopurinoL 300 MG TAB PO SCH (08:55)
[2019-06-07] MEDS: MOM 30ML SUSPENSION UDC PO SCH (08:55)
[2019-06-07] MEDS: DOXYCYCLINE HYCLATE 100 MG TAB PO SCH (08:55)
--- NOTE | 2019-06-07 12:16 | IPNPDOC ---
Date Seen The patient was seen on 06/07/19. Progress Note SUBJECTIVE: Patient reports she is feeling well today. She denies any discomfort or shortness of breath. She did have minimal pain at the site of the procedure, but this pain has gone away at this point. She notes no changes in her breathing patterns. She continues to use oxygen at night instead of her CPAP. Otherwise, she has no complaints. She is eating and drinking well and having bowel m ovements and urinating well. OBJECTIVE: PHYSICAL EXAMINATION: VITAL SIGNS: Please see below. GENERAL APPEARANCE: Laying in bed, morbidly obese, appears stated age, no acute distress, calm, cooperative HEENT: EOMI, PERRLA, neck is supple with no thyromegaly or lymphadenopathy RESPIRATORY: Pigtail catheter inserted into right lower lobe of right lung. Incision site is clean, dry and intact. Draining serosanguineous fluid. Lung sounds in this area reveal fluid and suction sounds. Other lung sounds are clear to auscultation CARDIOVASCULAR: Unable to assess JVD, irregularly regular, 2/6 murmur ap preciated in left upper sternal border ABDOMEN: Soft, nontender to palpation in all four quadrants, no masses/organomegaly EXTREMITIES: Trace edema in lower extremities bilaterally NEUROLOGICAL: Cranial nerves II through XII are intact, No obvious focal deficits PSYCHIATRIC: normal mood/affect Skin: No rashes or ulcers. LN: No significant cervical or inguinal lymphadenopathy LABORATORY DATA: See below. IMAGING: CXR (06/05/19): Impression: Moderate partially loculated right pleural effusion with associated atelectasis. Subtle changes at the left base. CXR (06/06/19): Findings: A right posterolateral pigtail catheter is seen in the pleural space in good position. There is a decrease in the size of the pleural thickening along the lateral chest wall. No complication is seen. CXR (06/07/19): Impression: Minimally decreased right pleural fluid. Continued bibasilar opacities and pleuroparenchymal changes MICROBIOLOGY: Please see below. ASSESSMENT: This is an 84-year-old female with history of recurrent pneumonia, diastolic congestive heart failure, paroxysmal atrial fibrillation (on Coumadin) who presented first to [facility] on 06/01/2019 with shortness of breath and fever, found to have right lower lobe pneumonia and UTI. She now has loculated right lower lobe effusion and has been transferred to [facility] for possible drainage and catheter placement. Of note, she does have recurrent pneumonia with 5 hospitalizations in 2019. PLAN: 1. Loculated right lower lobe pleural effusion: Patient reports shortness of breath is improving since her admission to [facility] -Thoracic surgery notes improvement in CXR today compared to yesterday. -The etiology is most likely CHF transudative effusion. -Will pull pigtail catheter today and discharge patient home. -No indication for more abx other than Doxycycline for UTI at this time 2. Diastolic congestive heart failure: -Echocardiogram demonstrates grade 2 LV diastolic dysfunction, moderate to severe pulmonary hypertension with LVEF 70% -Continue home torsemide, Bisoprolol 3. Paroxysmal atrial fibrillation on Coumadin: -Coumadin restarted. Will increase dose. -Rate control with diltiazem -Will check serial INRs -Continuous telemetry 4. Urinary tract infection: Urine culture positive for E. coli -s/p doxycycline, will change to Cefdinir for sensitivities -Patient will need to see Urology in outpatient setting for chronic recurring UTIs 5. Coronary artery disease: -Continue ASA, Atorvastatin 6. GERD: -Continue Ranitidine 7. Mood disorder: -Continue Citalopram 8. COPD: Patient follows with Dr. Tenorio -Continue Advair Diskus DISPO: Discharge home today with follow up INR check. DVT Ppx: TEDs/SCDs VS, I&O, 24H, Fishbone Vital Signs/I&O Vital Signs Date Time Temp Pulse Resp B/P (MAP) Pulse Ox O2 Delivery O2 Flow Rate FiO2 06/07/19 09:00 93 Room Air 06/07/19 08:54 73 126/59 06/07/19 08:00 97.8 17 1.0 I&O- Last 24 Hours up to 6 AM 06/07/19 06:00 Intake Total 1750 ml Output Total 2218 ml Balance -468 ml Laboratory Data 24H LABS Laboratory Tests 2 06/06/19 21:27: Bedside Glucose (Misc Panel) 107 06/07/19 05:28: Immature Granulocyte % (Auto) 0.4, Neutrophils (%) (Auto) 61.7, Lymphocytes (%) (Auto) 23.1L, Monocytes (%) (Auto) 9.4H, Eosinophils (%) (Auto) 5.1H, Basophils (%) (Auto) 0.3, Neutrophils # (Auto) 4.9, Lymphocytes # (Auto) 1.8, Monocytes # (Auto) 0.7, Eosinophils # (Auto) 0.4, Basophils # (Auto) 0.0, Nucleated Red Blood Cells % (auto) 0.0, Prothrombin Time 17.5H, Prothromb Time International Ratio 1.46, Anion Gap 9, Glomerular Filtration Rate 35.9, Calcium Level 9.3, Magnesium Level 1.8 CBC/BMP Laboratory Tests 06/07/19 05:28 Microbiology Microbiology 06/06/19 Gram Stain - Final, Resulted 06/06/19 Anaerobic Culture, Resulted Pending 06/05/19 Acid Fast Stain, Received Pending 06/05/19 Mycobacterial Culture, Received Pending 06/05/19 Fungal Smear, Received Pending 06/05/19 Fungal Culture, Received Pending 06/05/19 Body Fluid Culture, Received Pending 06/04/19 Urine Culture - Final, Complete Escherichia Coli GME ATTESTATION GME ATTESTATION My faculty preceptor for this patient encounter was physically present during the encounter and was fully available. All aspects of the patient interview, examination, medical decision making process, and medical care plan development were reviewed and approved by the faculty preceptor. The faculty preceptor is aware and concurs with the plan as stated in the body of this note and will attest to such by his/her cosignature. ATTENDING NOTE I, Mariah Capone, have independently examined this patient and performed my own physical exam, as well as reviewed the documentation and edited where necessary. I have discussed in detail with the resident / student the findings and plan of treatment as documented by the resident / student and edited their note. I agree with their findings and treatment plan and have edited their documentation. I will continue to follow the patient during this hospital stay. KOBE AVILA MD Jun 07, 2019 11:35 MARIAH CAPONE MD Jun 07, 2019 15:15
[2019-06-07] MEDS ORDERED: COUM1TAB17 PO (12:27)
[2019-06-07] MEDS ORDERED: CEFD300CAP PO (12:27)
--- NOTE | 2019-06-07 13:11 | IPN ---
DATE: 06/07/2019 Ms. Moon is doing well today. She underwent a tPA pleurolysis and chest x-ray is markedly improved. She is draining quite minimally from the pigtail catheter. Her vital signs show a T-max of 97.8 with a heart rate that ranges between 67 and 73 in a sinus rhythm, respiratory rate of 17 to 18 without the use of accessory muscles who is 92 to 93% saturated on room air and whose blood pressure is ranging between 126/59 to 140/80. Her intake and output over the past 24 hours has been recorded as 1750 in and 2170 out for a negativity of 420 mL. She put out 250 mL from the chest tube since her tPA pleurolysis. She weighs 101.5 kg today compared to 103.7 kg yesterday. PHYSICAL EXAMINATION: She still has some rales in the right lower base. The left lower base is clear. Percussion notes are full to the diaphragm. Cardiac exam is without murmurs, clicks, gallops or rubs. I cannot feel her point of maximal impulse (PMI). S1 and S2 are normal. Abdominal exam is soft and nontender. Bowel sounds are positive. There is no hepatomegaly that I can feel through her morbid obesity. Extremities show no pretibial edema, no calf tenderness and there is no differential swelling of the upper extremities. Skin is warm, dry and perfused without cyanosis or mottling including that of the nail beds and the knees. Neck is supple. There is no jugular venous distention, no subcutaneous emphysema. Trachea is midline. Mouth shows her mucous membranes to be pink and moist, lips and commissures without lesions. No thrush. Eyes show her pupils to be equal and reactive. Extraocular muscles intact. Sclera anicteric. Neuro shows II through XII intact. Gross motor and gross sensation intact. Gait is not tested. Psychiatric shows her to be awake and alert, oriented times three with appropriate mood and affect, and conversational. Her white count today is 7.9 with hemoglobin and hematocrit of 10.4 and 32.8 and a platelet count of 244. Differential shows 61% neutrophils, 23% lymphocytes, 9% monocytes. There are no immature forms. No toxic granulations. Electrolytes are essentially normal with a BUN and creatinine of 39 and 1.48 which is her baseline with a glucose of 100 and a calcium of 9.3 with a magnesium of 1.8. Her PT/INR are 17.5 and 1.46. The pleural fluid has been returned with a pH of 7.65 with a glucose of 59, an LDH of 99 and a total protein of 2.2. Her serum LDH was 161 and total protein was 6.8. This clearly makes this transudative. She had 447 white cells, 94% of which are mononuclear or lymphocytic and of which 6% are PMNs. This looks to be chronic pleural effusion, transudative in nature, probably secondary to a combination of heart failure and renal insufficiency. Her chest x-ray today as noted in the introduction shows a marked improvement in the pleural effusion. She has some residual pleural thickening, but that is about it. Pigtail catheter is in good place. Costophrenic angles are sharp. I see no infiltrates. The atelectatic compression of the right lower lobe looks to be improved. Lateral chest x-ray does not show any posterior infiltrates. IMPRESSION: 1. Right-sided pleural effusion, recurrent and transudative. 2. Coronary artery disease. 3. Diastolic heart failure. 4. Renal insufficiency. 5. Atrial fibrillation, on Coumadin, now in a sinus rhythm. 6. Tricuspid insufficiency. 7. Pulmonary hypertension secondary to hypoventilation and morbid obesity. 8. E. coli urinary tract infection. PLAN AND DISCUSSION: I will remove her catheter today. I see no reason why we need to keep her. Her heart failure needs to be aggressively treated. As of now she is only on torsemide. I will see her back in the office in 1-2 weeks with a chest x-ray. I will send her home on her incentive spirometer. She does wear CPAP at home.
--- NOTE | 2019-06-07 15:14 | DS.PDOC ---
Discharge Summary General Date of Admission Jun 04, 2019 at 14:38 Date of Discharge June 07, 2019 Primary Care Physician: Yoly Patricio DO [facility] Attending Physician: MARIAH COOK MD Specialist/Consultants Involve: GUCCI SPICER MD Discharge Summary PROCEDURES PERFORMED DURING STAY: [None]. ADMITTING DIAGNOSES: 1. Pleural effusion DISCHARGE DIAGNOSES: 1. Pleural effusion s/p pigtail catheter COMPLICATIONS/CHIEF COMPLAINT: Right Sided Loculated Pleural Effusion. HISTORY OF PRESENT ILLNESS: Chrissy Moon is an 84-year-old female with history of chronic diastolic congestive heart failure, recurrent pneumonia, recent thoracentesis for drainage of right-sided pleural effusion (04/2019) who presents as a direct transfer from [facility] for loculated pleural effusion. She first presented to [facility] on 06/01/2019 with shortness of breath, fevers, chills. She was found to have mild leukocytosis at 11.2 and hypokalemia with potassium of 3.3. Chest x-ray was performed and found a right lower lobe infiltrate. A respiratory viral panel was negative and her BNP was found to be elevated at 894. She was previously hospitalized for pneumonia at [facility] four other times this year for the same symptoms. Each time she is treated with antibiotics and diuresis for suspected concurrent congestive heart failure exacerbation. In addition, the patient is currently on doxycycline for UTI. She has a history of recurrent UTIs for which she followed with urology several years ago but has not since seen a physician. Today, the patient reports her shortness of breath is much improved, she has some difficulty using her CPAP at night, but overall she feels better than she did 3 days ago. She was transferred to [facility] for possible thoracentesis and Pleurx catheter placement. HOSPITAL COURSE: On admission, patient had no complaints of SOB, no difficulty laying flat, and no fevers/chills for several days. She got CXR which showed lateral pleural effusion and possible entrapped lung. A decision was made to monitor the patient and reassess for thoracentesis and pigtail catheter placement in a few days. The patient remained stable with normal vitals and labs. On hospital day #[address] guided pigtail catheter placement. About 50cc fluid was removed at that point in time. Subsequently, she received tPA via catheter and about 150cc fluid was removed. Fluid was studied and found to be transudative, likely secondary to heart failure and/or renal failure. On hospital day #4, the patient remained stable, lung re-expanded and fluid collection only minimal on CXR and she was discharged home in stable state. Pigtail catheter was removed and dressing applied. For her procedure, her coumadin was held and upon discharge it was restarted with plan to have her follow up with PCP for INR check in 3 days and dose adjustment. She will follow up with Dr. Caballero in 1-2 weeks for chest x-ray. DISCHARGE MEDICATIONS: Please see below. ALLERGIES: Please see below. PHYSICAL EXAMINATION ON DISCHARGE: VITAL SIGNS: Please see below. GENERAL APPEARANCE: Laying in bed, morbidly obese, appears stated age, no acute distress, calm, cooperative HEENT: EOMI, PERRLA, neck is supple with no thyromegaly or lymphadenopathy RESPIRATORY: Pigtail catheter inserted into right lower lobe of right lung. Incision site is clean, dry and intact. Draining serosanguineous fluid. Lung sounds in this area reveal fluid and suction sounds. Other lung sounds are clear to auscultation CARDIOVASCULAR: Unable to assess JVD, irregularly regular, 2/6 murmur appreciat ed in left upper sternal border ABDOMEN: Soft, nontender to palpation in all four quadrants, no mass es/organomegaly EXTREMITIES: Trace edema in lower extremities bilaterally NEUROLOGICAL: Cranial nerves II through XII are intact, No obvious focal deficits PSYCHIATRIC: normal mood/affect Skin: No rashes or ulcers. LN: No significant cervical or inguinal lymphadenopathy LABORATORY DATA: Please see below. IMAGING: CXR (06/05/19): Impression: Moderate partially loculated right pleural effusion with associated atelectasis. Subtle changes at the left base. CXR (06/06/19): Findings: A right posterolateral pigtail catheter is seen in the pleural space in good position. There is a decrease in the size of the pleural thickening along the lateral chest wall. No complication is seen. CXR (06/07/19): Impression: Minimally decreased right pleural fluid. Continued bibasilar opacities and pleuroparenchymal changes PROGNOSIS: fair ACTIVITY: [As tolerated]. DIET: 2g sodium diet DISCHARGE PLAN: home DISPOSITION: Home with services DISCHARGE INSTRUCTIONS: 1. Home with INR check in 3 days 2. Follow up appt with Dr. Caballero in 1-2 weeks with CXR 3. Return to the ER if you experience any problems ITEMS TO FOLLOWUP ON ON OUTPATIENT: None DISCHARGE CONDITION: [Stable]. TIME SPENT ON DISCHARGE: Greater than 30 minutes. Vital Signs/I&Os Vital Signs Date Time Temp Pulse Resp B/P (MAP) Pulse Ox O2 Delivery O2 Flow Rate FiO2 06/07/19 12:00 97.8 73 17 118/58 (78) 92 Nasal Cannula 1.0 I&O- Last 24 Hours up to 6 AM 06/07/19 06:00 Intake Total 1750 ml Output Total 2218 ml Balance -468 ml Laboratory Data Labs 24H Laboratory Tests 2 06/06/19 21:27: Bedside Glucose (Misc Panel) 107 06/07/19 05:28: Immature Granulocyte % (Auto) 0.4, Neutrophils (%) (Auto) 61.7, Lymphocytes (%) (Auto) 23.1L, Monocytes (%) (Auto) 9.4H, Eosinophils (%) (Auto) 5.1H, Basophils (%) (Auto) 0.3, Neutrophils # (Auto) 4.9, Lymphocytes # (Auto) 1.8, Monocytes # (Auto) 0.7, Eosinophils # (Auto) 0.4, Basophils # (Auto) 0.0, Nucleated Red Blood Cells % (auto) 0.0, Prothrombin Time 17.5H, Prothromb Time International Ratio 1.46, Anion Gap 9, Glomerular Filtration Rate 35.9, Calcium Level 9.3, Magnesium Level 1.8 06/07/19 11:51: Bedside Glucose (Misc Panel) 114H CBC/BMP Laboratory Tests 06/07/19 05:28 FSBS Laboratory Tests Test 06/06/19 21:27 06/07/19 11:51 Range/Units Bedside Glucose (Misc Panel) 107 114 83-110 MG/DL Microbiology Microbiology 06/06/19 Gram Stain - Final, Resulted 06/06/19 Anaerobic Culture, Resulted Pending 06/05/19 Acid Fast Stain, Received Pending 06/05/19 Mycobacterial Culture, Received Pending 06/05/19 Fungal Smear, Received Pending 06/05/19 Fungal Culture, Received Pending 06/05/19 Body Fluid Culture, Received Pending 06/04/19 Urine Culture - Final, Complete Escherichia Coli Discharge Medications Scheduled Allopurinol (Zyloprim) 300 Mg Tablet, 300 MG PO DAILY, (Reported) Aspirin (Aspir 81) 81 Mg Tablet.dr, 81 MG PO DAILY, (Reported) Atorvastatin Calcium (Atorvastatin Calcium) 20 Mg Tablet, 20 MG PO QHS, (Reported) 80 MG PRAVASTATIN GIVEN AT [facility] Bisoprolol Fumarate (Bisoprolol Fumarate) 5 Mg Tablet, 5 MG PO QHS, (Reported) Cefdinir (Cefdinir) 300 Mg Capsule, 300 MG PO BID Cholecalciferol (Vitamin D3) (Vitamin D3) 1,000 Unit Tablet, 2,000 UNIT PO DAILY, (Reported) Citalopram Hydrobromide (Citalopram HBr) 40 Mg Tablet, 40 MG PO DAILY, (Reported) Diltiazem HCl (Cartia Xt) 240 Mg Cap.er.24h, 240 MG PO DAILY, (Reported) Gabapentin (Gabapentin) 300 Mg Capsule, 600 MG PO BID, (Reported) Ranitidine Hcl (Ranitidine HCl) 150 Mg Tablet, 1 TAB PO DAILY, (Reported) GIVEN 40MG PANTOPRAZOLE AT [facility] Salmeterol/Fluticasone (Advair 250-50 Diskus) 1 Each Blst.w.dev, 1 PUFF INH BID, (Reported) Torsemide (Torsemide) 10 Mg Tablet, 20 MG PO DAILY, (Reported) Warfarin Sodium (Coumadin) 5 Mg Tablet, 5 MG PO MoWeFr@1700 TAKE 5MG DAILY FOR 3 DAYS, THEN HAVE INR CHECKED BY PCP AND ADJUST DOSE DIRECTED BY PCP Scheduled PRN Albuterol Sulf (Albuterol Sulfate) 2.5 Mg/3 Ml Vial.neb, 1 VIAL INH Q4H PRN for SOB/WHEEZING, (Reported) Alprazolam (Alprazolam) 0.25 Mg Tablet, 0.25 MG PO BID PRN for ANXIETY, (Reported) Bisacodyl (Bisacodyl) 10 Mg Supp.rect, 10 MG MT DAILY PRN for CONSTIPATION, (Reported) Docusate Sodium (Colace) 100 Mg Capsule, 100 MG PO BID PRN for CONSTIPATION, (Reported) Allergies Coded Allergies: ANA Inhibitors (Verified Adverse Reaction, Intermediate, "AFFECTED MY KIDNEY FUNCTION", 06/04/19) NSAIDS (Non-Steroidal Anti-Inflamma (Verified Adverse Reaction, Intermediate, AFFECTS KIDNEY FUNCTION, 06/04/19) codeine (Verified Adverse Reaction, Intermediate, GI UPSET, 06/04/19) INFO FROM UROLOGY OFFICE NOTE 09/2016 levocetirizine (Verified Adverse Reaction, Intermediate, BLURRED VISION, 06/04/19) PER UROLOGY OFFICE NOTE 09/2016 topiramate (Verified Adverse Reaction, Intermediate, UNKNOWN, 06/04/19) PT CANT REMEMBER REACTION GME ATTESTATION GME ATTESTATION My faculty preceptor for this patient encounter was physically present during the encounter and was fully available. All aspects of the patient interview, examination, medical decision making process, and medical care plan development were reviewed and approved by the faculty preceptor. The faculty preceptor is aware and concurs with the plan as stated in the body of this note and will attest to such by his/her cosignature. ATTENDING NOTE I, Mariah Cook, have independently examined this patient and performed my own physical exam, as well as reviewed the documentation and edited where necessary. I have discussed in detail with the resident / student the findings and plan of treatment as documented by the resident / student and edited their note. I agree with their findings and treatment plan and have edited their documen tation. I will continue to follow the patient during this hospital stay. Time spent on discharge 38 minutes GME ATTESTATION GME ATTESTATION My faculty preceptor for this patient encounter was physically present during the encounter and was fully available. All aspects of the patient interview, examination, medical decision making process, and medical care plan development were reviewed and approved by the faculty preceptor. The faculty preceptor is aware and concurs with the plan as stated in the body of this note and will attest to such by his/her cosignature. KOBE AVILA MD Jun 07, 2019 14:55 MARIAH COOK MD Jun 07, 2019 15:14
[2019-06-07] MEDS ORDERED: WARFARIN SOD 4 MG TAB PO SCH (17:00)
[2019-06-08] MEDS ORDERED: WARFARIN SOD 5 MG TAB PO SCH (17:00)
== END 2019-06-07 15:05 | disposition home health service (06) | DRG 187 ==
LOC: M PCU 14:38
PROVIDERS: ADMIT Internal Medicine; ATTEND Internal Medicine
PROC: 0W9930Z Drainage of Right Pleural Cavity with Drainage Device, Percutaneous Approach (ICD-10-PCS; principal; 2019-06-06 12:32)
DX: J90 Pleural effusion, not elsewhere classified (principal); I50.42 Chronic combined systolic (congestive) and diastolic (congestive) heart failure; N39.0 Urinary tract infection, site not specified; I13.0 Hypertensive heart and chronic kidney disease with heart failure and stage 1 through stage 4 chronic kidney disease, or unspecified chronic kidney disease; I48.0 Paroxysmal atrial fibrillation; Z88.6 Allergy status to analgesic agent; Z79.899 Other long term (current) drug therapy; Z79.82 Long term (current) use of aspirin; Z88.5 Allergy status to narcotic agent; Z79.01 Long term (current) use of anticoagulants; N18.3 Chronic kidney disease, stage 3 (moderate); J44.9 Chronic obstructive pulmonary disease, unspecified; I25.10 Atherosclerotic heart disease of native coronary artery without angina pectoris; Z95.2 Presence of prosthetic heart valve; F41.9 Anxiety disorder, unspecified; G47.33 Obstructive sleep apnea (adult) (pediatric); M54.5 Low back pain; E11.9 Type 2 diabetes mellitus without complications; B96.29 Other Escherichia coli [E. coli] as the cause of diseases classified elsewhere; F39 Unspecified mood [affective] disorder; K21.9 Gastro-esophageal reflux disease without esophagitis; I27.20 Pulmonary hypertension, unspecified; I36.0 Nonrheumatic tricuspid (valve) stenosis

== ENCOUNTER → 2019-06-16 | Outpatient (CLI) | payer MEDICARE ==
[~2019-06-16] MED LIST: ADV250INH INH; ALBU0.63 INH; ALBU83IN INH; ALPR0.25 PO; ASPI81TA85 PO; ATOR1TAB21 PO; BISA10SU4 PR; BISO5TAB9 PO; CART240C3 PO; CEFD300CAP PO; CITA40TA4 PO; COLA100C5 PO; COUM1TAB17 PO; DOXY100C PO; GABA-843 PO; POTA20TA6 PO; RANI1TAB38 PO; SPIR1CAP INH; TORS10TA3 PO; VITA100066 PO; WARF-20 PO; WARF-23 PO; ZYLO300T6 PO
--- NOTE | 2019-06-16 12:15 | REPPI ---
CHEST, TWO VIEWS: Two views of the chest are performed and compared to several prior studies, most recently 06/07/2019. The recently noted right-side pigtail catheter is no longer visualized. Pleural and parenchymal opacity in the right lung base has mildly increased since the prior exam. Very mild streaky densities in the left base are unchanged. There is mild cardiomegaly. Mediastinal silhouette is unchanged with mild calcification of the thoracic aorta. There are degenerative changes of the spine with accentuation of thoracic kyphosis. IMPRESSION: Removal of right-sided pigtail drainage catheter. Mild increase in pleural and parenchymal opacity in the right lung base. Electronically Signed by Gil Brice MD 06/16/2019 05:41 P
== END ==
LOC: M PLAIMG 08:16 → M PLALAB 08:16
PROVIDERS: ATTEND Thoracic Surgery (Cardiothoracic Vascular Surgery)
DX: J90 Pleural effusion, not elsewhere classified (principal)

== ENCOUNTER → 2022-02-01 | Outpatient (CLI) | payer MEDICARE ==
[~2022-02-01] MED LIST changes: +ALBU2.5V10 INH; -ALBU83IN INH; -ASPI81TA85 PO; +ASPI81TA86 PO; +BISO5TAB14 PO; -BISO5TAB9 PO; -CITA40TA4 PO; +CITA40TA7 PO; -DOXY100C PO; +DOXY100C3 PO; +GABA-282 PO; -GABA-843 PO; +POTA-151 PO; -POTA20TA6 PO
== END ==
LOC: M SLEEP 20:00
PROVIDERS: ATTEND Physician Assistant
DX: G47.33 Obstructive sleep apnea (adult) (pediatric) (principal)

== ENCOUNTER → 2022-07-21 | Outpatient (CLI) | payer MEDICARE ==
[~2022-07-21] MED LIST changes: +ISOVUE-300 61% 100ML VIAL As Ordered ONE; +LIDOCAINE 1% MDV 20ML VIAL As Ordered ONE; +TRIAMCINOLONE ACETONIDE SUSP 40MG/ML 1ML VIAL As Ordered ONE
== END ==
LOC: M RAD 14:07
PROVIDERS: ATTEND Physician Assistant
DX: M16.11 Unilateral primary osteoarthritis, right hip (principal)
CPT/HCPCS: 20610; 76000; J3301; Q9967

== ENCOUNTER → 2022-10-27 | Outpatient (CLI) | payer MEDICARE | LOC: M RAD 14:03 | PROVIDERS: ATTEND Physician Assistant | DX: M16.11 Unilateral primary osteoarthritis, right hip (principal) | CPT/HCPCS: 20610; 77002; J3301; Q9967 ==

== ENCOUNTER → 2023-03-16 | Outpatient (CLI) | payer MEDICARE | LOC: M RAD 13:45 | PROVIDERS: ATTEND Physician Assistant | DX: M16.11 Unilateral primary osteoarthritis, right hip (principal) | CPT/HCPCS: 20610; 77002; J3301; Q9967 ==

== ENCOUNTER 2023-07-31 14:26 | Emergency (ER) | payer MEDICARE ==
[~2023-07-31] VITALS: Ht 142.2 cm; Wt 106.8 kg
[~2023-07-31 14:26] MED LIST changes: -ISOVUE-300 61% 100ML VIAL As Ordered ONE; -LIDOCAINE 1% MDV 20ML VIAL As Ordered ONE; -TRIAMCINOLONE ACETONIDE SUSP 40MG/ML 1ML VIAL As Ordered ONE
[2023-07-31] MEDS: ACETAMINOPHEN 325 MG TAB PO ONE (18:02)
[2023-07-31 19:49] LABS: BASO % 0.7 % (0.0-1.0); EOS % 0.2 % (0.0-3.0); HEMOGLOBIN 13.2 g/dl (12.0-15.5); LYMPH # 0.6 10^3/uL (1.5-5.0); LYMPH % 10.9 % (24.0-44.0); MEAN CORPUSCULAR HGB CONC 32.2 g/dl (32.0-36.5); MEAN CORPUSCULAR VOLUME 102.5 fl (80.0-96.0); MONO # 0.1 10^3/uL (0.0-0.8); MONO % 1.5 % (2.0-8.0); NEUTROPHILS # 4.7 10^3/uL (1.5-8.5); NEUTROPHILS % 86.3 % (36.0-66.0); PLATELET COUNT, AUTOMATED 227 10^3/uL (150-450); WHITE BLOOD COUNT 5.5 10^3/uL (4.0-10.0)
[2023-07-31 20:35] LABS: CALCIUM LEVEL 9.5 MG/DL (8.3-10.6); CREATININE FOR GFR 0.97 MG/DL (0.55-1.30); POTASSIUM SERUM 4.9 MMOL/L (3.5-5.1)
[2023-07-31] MEDS ORDERED: ISOVUE-370 76% 100ML VIAL As Ordered ONE (20:47)
[2023-07-31 23:38] VITALS: BP 181/86; TEMP 97.6; O2SAT 98
== END 2023-07-31 23:34 | disposition home or self-care (01) ==
LOC: M ED 14:26
DX: M25.551 Pain in right hip (principal); M16.11 Unilateral primary osteoarthritis, right hip; F41.9 Anxiety disorder, unspecified; F32.A Depression, unspecified; I25.119 Atherosclerotic heart disease of native coronary artery with unspecified angina pectoris; I50.22 Chronic systolic (congestive) heart failure; I11.0 Hypertensive heart disease with heart failure; E11.9 Type 2 diabetes mellitus without complications; N18.30 Chronic kidney disease, stage 3 unspecified; Z88.8 Allergy status to other drugs, medicaments and biological substances; Z79.899 Other long term (current) drug therapy; Z79.51 Long term (current) use of inhaled steroids
CPT/HCPCS: 20610; 36415; 72132; 73700; 77002; 80048; 85025; 99284; J3301; Q9967

== ENCOUNTER → 2023-07-31 | Outpatient (CLI) | payer MEDICARE | LOC: M RAD 12:34 | PROVIDERS: ATTEND Physician Assistant | DX: M16.11 Unilateral primary osteoarthritis, right hip (principal) | CPT/HCPCS: 20610; 77002; J3301; Q9967 ==

== ENCOUNTER → 2024-04-07 | Outpatient (CLI) | payer MEDICARE ==
[~2024-04-07] MED LIST changes: +GABA-1172 PO; -GABA-282 PO; +ISOVUE-300 61% 100ML VIAL As Ordered ONE; +LIDOCAINE 1% MDV 20ML VIAL As Ordered ONE; +TRIAMCINOLONE ACETONIDE SUSP 40MG/ML 1ML VIAL As Ordered ONE
== END ==
LOC: M RAD 15:08
PROVIDERS: ATTEND Physician Assistant
DX: M16.11 Unilateral primary osteoarthritis, right hip (principal)
CPT/HCPCS: 20610; 77002; J3301; Q9967

== ENCOUNTER → 2025-01-12 | Outpatient (REF) | payer MEDICAID, MEDICARE ==
[~2025-01-12] MED LIST changes: -ADV250INH INH; +ADVA1AER9 INH; -ISOVUE-300 61% 100ML VIAL As Ordered ONE; -LIDOCAINE 1% MDV 20ML VIAL As Ordered ONE; -TRIAMCINOLONE ACETONIDE SUSP 40MG/ML 1ML VIAL As Ordered ONE
== END ==
LOC: SKLAB2 08:23
PROVIDERS: ATTEND Internal Medicine
DX: Z11.52 Encounter for screening for COVID-19 (principal)